=== PATIENT | male | born 1945 | race Caucasian/White ===

== ENCOUNTER 2020-03-30 05:56 | Day surgery (SDC) | payer OTHER ==
[~2020-03-30] VITALS: Ht 177.8 cm; Wt 97.5 kg
[~2020-03-30 05:56] MED LIST: BENTYL20 MG PO; MULTIVITAM9 MG/15 M1 PO; Norco 5-325 Ta1 EACH PO
--- NOTE | 2020-03-30 06:46 | NUR ---
Ambulatory in Day Surgery History, Chart, Medications and Allergies reviewed before start of procedure. Lungs clear T/O to Auscultation. Pre-Op teaching done. Pt verbalizes understanding.
[2020-03-30] MEDS ORDERED: AMLO10 PO (10:35)
--- NOTE | 2020-03-30 18:04 | NUR ---
SHIFT SUMMARY PT IS POD#0 FROM A L [facility]SIM[facility] WITH DR. ADAME. HE HAS HAD MINIMAL PAIN THIS SHIFT. HE IS A 1 PERSON ASSIST WHEN OOB. PT IS TOLERATING PO. HE HAS BEEN ABLE TO VOID. VSS. WILL MONITOR UNTIL REPORT TO ONCOMING RN.
[2020-03-31 04:02] LABS: BASOPHILS ABSOLUTE AUTO 0.02 K/mm3 (0.00-0.23); BASOPHILS PERCENT AUTO 0 % (0-2); EOSINOPHILS PERCENT AUTO 0 % (0-6); Hemoglobin 14.1 g/dL (13.5-17.5); IMMATURE GRAN ABSOLUTE AUTO 0.09 K/mm3 (0.00-0.10); IMMATURE GRAN PERCENT AUTO 1 % (0-1); LYMPHOCYTES ABSOLUTE AUTO 1.44 K/mm3 (0.84-5.20); LYMPHOCYTES PERCENT AUTO 7 % (21-46); MONOCYTES ABSOLUTE AUTO 1.36 K/mm3 (0.16-1.47); MONOCYTES PERCENT AUTO 7 % (4-13); Mean Corpuscular HGB Conc 33.6 g/dL (31.5-36.5); Mean Corpuscular Volume 86 fL (80-100); Mean Platelet Volume 10.3 fL (9.1-12.4); NEUTROPHILS ABSOLUTE AUTO 16.55 K/mm3 (1.96-9.15); NEUTROPHILS PERCENT AUTO 85 % (41-73); Platelet Count 249 K/mm3 (150-400); RDW Standard Deviation 40.3 fL (35.1-46.3); Red Blood Cell Count 4.86 M/mm3 (4.30-5.90); White Blood Cell Count 19.46 K/mm3 (4.00-11.30)
[2020-03-31 04:16] LABS: Anion Gap 7 mmol/L (6-16); Blood Urea Nitrogen 16 mg/dL (8-24); Bun/Creatinine Ratio 16.6 (12.0-20.0); CO2, Blood 24 mmol/L (21-32); Calcium, Blood 8.4 mg/dL (8.5-10.1); Chloride, Blood 109 mmol/L (98-108); Creatinine, Blood 0.96 mg/dL (0.60-1.20); Glomerular Filtration Rate >60 (60-); Glucose, Blood 142 mg/dL (70-99); Magnesium, Blood 2.1 mg/dL (1.6-2.4); Potassium, Blood 4.4 mmol/L (3.5-5.5); Sodium, Blood 140 mmol/L (136-145)
--- NOTE | 2020-03-31 06:09 | NUR ---
SHIFT SUMMARY LYING IN CHAIR AT BEDSIDE WITH EYES OPEN. HAS RESTED WELL THIS SHIFT AFTER TRANSFEREING BACK TO CHAIR. STATED THAT HE WAS UNCOMFORTABLE IN BED. DENIES NEED FOR PAIN MEDS, HAS BEEN MEDICATED PRN PER EMAR. DENIES FURTHER NEEDS OR WANTS AT THIS TIME. SAFETY MEASURES IN PLACE. WILL CONTINUE TO MONITOR AND GIVE HAND OFF TO ONCOMING SHIFT USING SBAR DURING BEDSIDE REPORT.
[2020-03-31] MEDS ORDERED: ACET500 PO (09:39)
[2020-03-31] MEDS ORDERED: ASPI81CH PO (09:40)
[2020-03-31] MEDS ORDERED: OXYC5 PO (09:46)
--- NOTE | 2020-03-31 12:01 | NUR ---
HYPERTENSION PT HAD ELEVATED BP 176/89. CALL REQUESTED FROM DR. ADAME. AWAITING RETURN CALL BEFORE PT DISCHARGES.
--- NOTE | 2020-03-31 14:07 | NUR ---
DISCHARGE PT PROVIDED WITH WRITTEN AND VERBAL DISCHARGE INSTRUCTIONS, HE REPORTED UNDERSTANDING. DR. ADAME NOTIFIED OF ELEVATED BLOOD PRESSURE PRIOR TO DISCHARGE. [facility] CALLED TO PT'S PHARMACY. PT WAS EDUCATED THAT HE WILL NEED TO FOLLOW UP WITH HIS PCP DOCTOR WITHIN ONE WEEK REGARDING HYPERTENSION. PT IS ASYMPTOMATIC OF ELEVATED BP AT THIS TIME. DRESSINGS AND PAIN MEDICATION SCRIPT PROVIDED. PT REPORTS MINIMAL PAIN.
== END 2020-03-31 14:20 | disposition home or self-care (01) ==
LOC: ORSCMMR 05:56 → ORD 07:30 → ORSCMMR 07:30 → SURS 11:25 → ORSCMMR 03-31 14:20
PROVIDERS: Orthopaedic Surgery
PROC: 0SRB0JA Replacement of Left Hip Joint with Synthetic Substitute, Uncemented, Open Approach (ICD-10-PCS; principal; 2020-03-30 07:30)
DX: M16.12 Unilateral primary osteoarthritis, left hip (principal); M87.852 Other osteonecrosis, left femur; Z79.82 Long term (current) use of aspirin; I10 Essential (primary) hypertension
CPT/HCPCS: 36415; 72170; 80048; 83735; 85025; 88300; 97110; 97116; 97161; A9270-GY; C1713; C1776; J0171; J0690; J0735; J1100; J1885; J2250; J2370; J2405; J2704; J2795; J3010; J7120

== ENCOUNTER → 2021-10-28 | Outpatient (CLI) | payer OTHER ==
[~2021-10-28] MED LIST changes: +ACET500 PO; +AMLO10 PO; +ASPI81CH PO; +OXYC5 PO
== END | disposition home or self-care (01) ==
LOC: LAB SHORT 14:00
DX: J02.9 Acute pharyngitis, unspecified (principal)
CPT/HCPCS: 87081